=== PATIENT | male | born 1995 | race African-American/Black ===

== ENCOUNTER 2018-05-04 01:56 | Inpatient (IN) | payer MEDICAID ==
[~2018-05-04] VITALS: Ht 170.2 cm; Wt 132.0 kg
[2018-05-04 02:03] VITALS: Ht 170.2 cm; Wt 132.0 kg
[2018-05-04 03:45] LABS: CALCIUM 8.2 mg/dL (8.5-10.1); CARBON DIOXIDE 23.7 mmol/L (21-32); CHLORIDE SERUM 103 mmol/L (98-107); CREATININE SERUM 1.1 mg/dL (0.7-1.3); GFR1 > 60 mL/min; GLUCOSE SERUM 219 mg/dL (74-106); POTASSIUM SERUM 3.8 mmol/L (3.5-5.1); SODIUM SERUM 139 mmol/L (136-145)
[2018-05-04 03:55] LABS: ALKALINE PHOSPHATASE 83 U/L (46-116); ALT/SGPT 20 U/L (16-63); AST/SGOT 22 U/L (15-37); BILIRUBIN TOTAL 0.23 mg/dL (0.20-1.00); FREE T4 0.87 ng/dL (0.76-1.46)
[2018-05-04 03:56] LABS: ALBUMIN 3.3 g/dL (3.4-5.0)
[2018-05-04 03:57] LABS: BASOPHIL % 0.4 % (0-2); PLATELET COUNT 243 x10^3mcL (130-400); RED CELL DISTRIBUTION WIDTH 13.5 % (11.5-14.5)
[2018-05-04 06:08] LABS: UA SPECIFIC GRAVITY >=1.030 (1.005-1.035); microscopic required? YES; urine erythrocyte NEGATIVE (NEGATIVE)
[2018-05-04 06:16] LABS: AMPHETAMINE QUAL UR NONE DETECTED (See below)
[2018-05-04 08:43] VITALS: BP 120/57
[2018-05-04 09:29] VITALS: BP 120/57
[2018-05-04 12:48] LABS: MAGNESIUM 2.3 mg/dL (1.8-2.4); PHOSPHOROUS 3.7 mg/dL (2.5-4.9)
[2018-05-04 12:49] LABS: CHOLESTEROL/HDL RATIO 5.3
[2018-05-04 12:58] LABS: T3 TOTAL 0.98 ng/mL
[2018-05-04 13:24] LABS: FREE T4 0.87 ng/dL (0.76-1.46); T4(THYROXINE) 5.5 ug/dL (4.7-13.3)
[2018-05-04 14:10] VITALS: BP 125/43
[2018-05-04 17:58] VITALS: BP 119/49
[2018-05-04 20:26] VITALS: BP 133/58
[2018-05-05 05:25] VITALS: BP 106/51
[2018-05-05 07:58] LABS: CALCIUM 8.6 mg/dL (8.5-10.1); CARBON DIOXIDE 25.4 mmol/L (21-32); CHLORIDE SERUM 106 mmol/L (98-107); CREATININE SERUM 0.8 mg/dL (0.7-1.3); GFR1 > 60 mL/min; GLUCOSE SERUM 94 mg/dL (74-106); MAGNESIUM 2.1 mg/dL (1.8-2.4); POTASSIUM SERUM 4.3 mmol/L (3.5-5.1); SODIUM SERUM 140 mmol/L (136-145)
[2018-05-05 08:01] LABS: BASOPHIL % 0.6 % (0-2)
[2018-05-05 08:36] LABS: PLATELET COUNT 239 x10^3mcL (130-400); RED CELL DISTRIBUTION WIDTH 14.9 % (11.5-14.5)
[2018-05-05 16:43] VITALS: BP 106/51
== END 2018-05-05 18:36 | disposition home or self-care (01) | DRG 53 ==
LOC: ED 01:56 → DU 07:03
PROVIDERS: Emergency Medicine; Family Medicine
DX: R56.9 Unspecified convulsions (principal); N17.0 Acute kidney failure with tubular necrosis; E02 Subclinical iodine-deficiency hypothyroidism; R80.9 Proteinuria, unspecified; Z68.34 Body mass index [BMI] 34.0-34.9, adult
CPT/HCPCS: 83880; 84439; G0480; J7030; Q0092